=== PATIENT | male | born 1945 | race Caucasian/White ===

== ENCOUNTER → 2019-12-01 08:07 | Outpatient (BNVA) | payer MEDICARE, OTHER, SELFPAY | PROVIDERS: Family Provider Internal Medicine; PCP Internal Medicine; Visit Provider Urology | DX: R97.20 Elevated prostate specific antigen [PSA] (principal); R39.9 Unspecified symptoms and signs involving the genitourinary system; N52.1 Erectile dysfunction due to diseases classified elsewhere; R35.1 Nocturia | CPT/HCPCS: 81001; 84153 ==

== ENCOUNTER → 2020-01-01 13:10 | Outpatient (BNVA) | payer MEDICARE, OTHER, SELFPAY | PROVIDERS: Family Provider Internal Medicine; PCP Internal Medicine; Visit Provider Internal Medicine Rheumatology | DX: Z79.899 Other long term (current) drug therapy (principal); M19.90 Unspecified osteoarthritis, unspecified site; Z11.59 Encounter for screening for other viral diseases; Z72.89 Other problems related to lifestyle | CPT/HCPCS: 36415; 80076; 82565; 85025; 85651; 86140; 86480; 86704; 87340 ==

== ENCOUNTER 2021-01-23 15:28 | Outpatient (CLI) | payer OTHER, MEDICARE, SELFPAY ==
--- NOTE | 2021-01-23 15:45 | USCV_ITS ---
Maurizio Malave Age: 75 Gender: M : 1945 Exam Date: 01/23/2021 15:49 Ordering Phys: Avery Jung M.D ([email or web address]) Technologist: Ashley Bautista [place] [facility] [place]: HEART MURMUR BP: 115 / 60 HR: 58 Rhythm: Sinus Technical Quality: Adequate MEASUREMENTS (Male / Female) Normal Values 2D ECHO LV Diastolic Diameter PLAX 4.1 cm 4.2 - 5.9 / 3.9 - 5.3 cm LV Systolic Diameter PLAX 2.4 cm IVS Diastolic Thickness 1.9 cm 0.6 - 1.0 / 0.6 - 0.9 cm IVS Systolic Thickness 2.1 cm LVPW Diastolic Thickness 1.7 cm 0.6 - 1.0 / 0.6 - 0.9 cm LVPW Systolic Thickness 2.4 cm RV Chamber Size 4.1 cm LVOT Diameter 2.0 cm LV Ejection Fraction 2D Teich 71.8 % LV Ejection Fraction MOD 2C 67.3 % LV Ejection Fraction 2C AL 65.8 % LA Diameter 3.4 cm LA Width 3.6 cm LA Height 5.6 cm RA Width 4.3 cm RA Height 5.3 cm Aorta at Sinotubular Diameter 2.5 cm M-MODE LV Diastolic Diameter MM 5.4 cm 4.2 - 5.9 / 3.9 - 5.3 cm LV Systolic Diameter MM 3.3 cm LV Ejection Fraction MM Teich 68.6 % IVS Diastolic Thickness MM 1.7 cm 0.6 - 1.0 / 0.6 - 0.9 cm IVS Systolic Thickness MM 2.6 cm LVPW Diastolic Thickness MM 1.3 cm 0.6 - 1.0 / 0.6 - 0.9 cm LVPW Systolic Thickness MM 2.1 cm Aortic Annulus Diameter 3.2 cm LA Ao Ratio MM 1.2 MV E Point Septal Separation 0.8 cm DOPPLER AV Peak Velocity 256.0 cm/s LVOT Peak Velocity 104.0 cm/s AV Area Cont Eq vti 1.6 cm squared AV Area Cont Eq pk 1.3 cm squared MV Area PHT 3.7 cm squared Mitral E to A Ratio 0.8 MV E' Velocity 48.5 cm/s Mitral E to MV E' Ratio 10.0 Mitral E to LV E' Lateral Ratio 8.3 Mitral E to LV E' Septal Ratio 12.6 TR Peak Velocity 300.0 cm/s TR Peak Gradient 36.0 mmHg Right Atrial Pressure 3.0 mmHg Pulmonary Artery Systolic Pressu 39.0 mmHg PV Peak Velocity 125.0 cm/s RV Acceleration Time 0.1 s RV Ejection Time 0.3 s RV AcT/ET 0.2 FINDINGS Left Ventricle Normal left ventricular size. LV systolic function is normal with EF of 55-60%. No regional wall motion abnormalities. Grade 1 diastolic dysfunction Right Ventricle The right ventricle is normal in size and function. Right Atrium The right atrium is normal in size. Left Atrium The left atrium is normal in size. Mitral Valve Structurally normal mitral valve without significant stenosis or prolapse. There is trace mitral regurgitation. Aortic Valve Aortic valve is thickened. There is mild aortic stenosis. By continuity equation, patient's aortic valve area is 1.6cm2 and mean gradient across the aortic valve is 12.3mmHg. There is no aortic regurgitation. Tricuspid Valve Structurally normal tricuspid valve without significant stenosis or regurgitation. Insufficient TR jet to calculate RVSP Pulmonic Valve Structurally normal pulmonic valve without significant stenosis. There is no pulmonic regurgitation. Pericardium Normal pericardium without effusion. Aorta Normal ascending aorta dimension. CONCLUSIONS LV systolic function is normal with EF of 55-60% Grade 1 diastolic dysfunction Mild aortic stenosis Trace mitral regurgitation No comparison studies are available Avery Jung MD (Electronically Signed) Final Date: 29 Jan 2021 15:05 S
== END 2021-01-23 15:29 | disposition home or self-care (01) ==
LOC: US 15:30
PROVIDERS: PCP Internal Medicine; Visit Provider Internal Medicine
DX: R01.1 Cardiac murmur, unspecified (principal); I51.81 Takotsubo syndrome; I35.0 Nonrheumatic aortic (valve) stenosis; I34.0 Nonrheumatic mitral (valve) insufficiency
CPT/HCPCS: 93306

== ENCOUNTER → 2021-03-23 09:48 | Outpatient (BNVA) | payer OTHER, MEDICARE, SELFPAY | PROVIDERS: PCP Internal Medicine; Visit Provider Internal Medicine Rheumatology | DX: M19.90 Unspecified osteoarthritis, unspecified site (principal); Z87.39 Personal history of other diseases of the musculoskeletal system and connective tissue; Z79.899 Other long term (current) drug therapy; Z79.52 Long term (current) use of systemic steroids | CPT/HCPCS: 99214; 99215 ==

== ENCOUNTER → 2021-05-17 15:10 | Outpatient (BNVA) | payer OTHER, SELFPAY | PROVIDERS: PCP Internal Medicine; Visit Provider Internal Medicine Rheumatology | DX: M19.90 Unspecified osteoarthritis, unspecified site (principal); Z87.39 Personal history of other diseases of the musculoskeletal system and connective tissue; Z79.899 Other long term (current) drug therapy; R53.1 Weakness | CPT/HCPCS: 99214 ==

== ENCOUNTER → 2021-10-11 15:06 | Outpatient (BNVA) | payer OTHER, SELFPAY | PROVIDERS: PCP Internal Medicine; Visit Provider Internal Medicine Rheumatology | DX: M25.50 Pain in unspecified joint (principal); Z87.39 Personal history of other diseases of the musculoskeletal system and connective tissue; Z79.899 Other long term (current) drug therapy; R53.1 Weakness | CPT/HCPCS: 99214 ==

== ENCOUNTER 2021-11-20 13:20 | Emergency (ER) | payer OTHER, MEDICARE, SELFPAY ==
[2021-11-20 13:21] VITALS: BP 189/92; PULSE 62; RESP 18; TEMP 36.6; O2SAT 96; BMI 29.0
[2021-11-20 13:28] VITALS: BP 209/90; RESP 18; O2SAT 96
--- NOTE | 2021-11-20 13:29 | CT_ITS ---
WS: [id number] CT CERVICAL TRAUMA TECHNIQUE: Noncontrast CT of the cervical spine with coronal and sagittal reformatted images. CLINICAL INFORMATION: trauma COMPARISON: None. DLP: 689.[address] scans at [facility] use at least one of these dose optimization techniques: automated e xposure control; mA and/or kV adjustment per patient size (includes targeted exams where dose is matc hed to clinical indication); or iterative reconstruction. FINDINGS: Straightening of the normal cervical lordosis. Moderate spondylitic changes. Disc space narrowing wor se at C5-C6 with anterior hypertrophic changes. Normal craniocervical junction. Normal C1-C2 articula tion. Dens is normal in appearance. Normal occipital condyles. No high-grade spinal canal narrowing. Normal C1 ring. No evidence of acute fracture or dislocation. Normal prevertebral soft tissues. Mastoids air cells are well aerated. CT/CT cervical spin wo con* [id number] IMPRESSION: No evidence of acute fracture or dislocation.
--- NOTE | 2021-11-20 13:29 | CT_ITS ---
WS: [id number] CT HEAD TECHNIQUE: Noncontrast CT of the head obtained from the skullbase to the vertex. CLINICAL INFORMATION: trauma COMPARISON: None. DLP: 1053.[address] scans at [facility] use at least one of these dose optimization techniques: automated e xposure control; mA and/or kV adjustment per patient size (includes targeted exams where dose is matc hed to clinical indication); or iterative reconstruction. FINDINGS: No evidence of intracranial hemorrhage or mass effect. Ventricular system and basal cisterns are wise nt. Mild small vessel changes with moderate parenchymal volume loss. Chronic encephalomalacia in the inferior frontal lobes bilaterally. No extra-axial fluid collections. No evidence of mass or mass eff ect. Mastoid air cells are well aerated. Fluid and blood products in the paranasal sinuses worse in the RI GHT maxillary sinus. Partially visualized RIGHT facial fractures. RIGHT inferior orbit depressed frac ture will be described on the face CT. Soft tissue edema overlying the RIGHT forehead and orbit. CT/CT head wo con* [id number] IMPRESSION: 1. No evidence of intracranial hemorrhage or mass effect. 2. Mild small vessel changes with moderate parenchymal volume loss. 3. 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 4. Diffuse soft tissue edema overlying the RIGHT forehead and RIGHT facial sof t tissues. Partially visualized RIGHT orbital floor fracture will be described on the face CT.
--- NOTE | 2021-11-20 13:29 | CT_ITS ---
WS: [id number] CT FACIAL BONES TECHNIQUE: Noncontrast facial bones with coronal and sagittal reformatted images. CLINICAL INFORMATION: trauma COMPARISON: None. DLP: 865.[address] scans at [place] use at least one of these dose optimization techniques: automated e xposure control; mA and/or kV adjustment per patient size (includes targeted exams where dose is matc hed to clinical indication); or iterative reconstruction. FINDINGS: Diffuse soft tissue edema overlying the RIGHT inferior frontal calvarium and RIGHT orbit. Comminuted depressed RIGHT inferior orbit fracture with herniation of intraorbital fat. No entrapment of the inf erior rectus. Orbital depression measures approximately 9 mm. Associated blood products in the RIGHT maxillary sinus. Nondepressed tiny probable fracture of the RIGHT lamina papyracea. Fluid and blood products in the RI GHT ethmoid air cells. Lateral orbit appears intact. Small RIGHT nasal bone fracture. Comminuted depressed fracture involving the RIGHT anterior maxillary sinus. Normal pterygoid plates. Normal RIGHT zygoma. Mastoid air cells are well aerated. No evidence of mandibular fracture or disloc ation. CT/CT facial bones wo con* [id number] IMPRESSION: 1. Comminuted RIGHT orbital floor fracture with depression measuring 9 mm. Her niation of intraorbital fat into the maxillary sinus. No entrapment of the infe rior rectus. 2. Probable tiny fracture involving the RIGHT lamina papyracea with fluid in t he RIGHT ethmoid air cells. Comminuted fracture of the RIGHT anterior maxillary sinus with 3 to 4 mm of depression. 3. RIGHT nondisplaced nasal bone fracture. 4. Mastoid air cells are well aerated. 5. Fluid and blood products within the paranasal sinuses worse in the RIGHT ma xillary sinus. Notified Pelon Flowers DO at 11/20/2021 2:42 PM.
[2021-11-20 13:39] VITALS: BP 209/90; PULSE 57; RESP 18; O2SAT 97
[2021-11-20 13:43] VITALS: RESP 18
[2021-11-20] MEDS: ondansetron 2 mg/ML SDV 2 mL 4 MG IVP (13:43)
[2021-11-20] MEDS: morphine 4 mg/mL SDV 1 mL IVP (13:43)
[2021-11-20] MEDS: tetanus-dipt-pertussis 0.5 mL SDV IM (13:44)
--- NOTE | 2021-11-20 14:31 | ED_ITS ---
Documented by User: Pelon Flowers DO 11/21/21 08:11 HPI - Trauma General: Chief Complaint: Trauma Stated Complaint: RT EYE SWOLLEN Time Seen by Provider: 11/20/21 13:27 Source: patient Mode of arrival: EMS Limitations: no limitations History of Present Illness: 76-year-old male brought in by EMS. 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 His right eye is significantly swollen. He is unable to open it or see out of it. He was given some pain medications in route when I came to see the patient this was undertaken with CT recheck to him after his CT his pain is pretty much been relieved he is still having some nausea. No vomiting. MD complaint: injury Onset (ago): minute(s) Loss of Consciousness: unsure Location: head and face Context: other (Tree trimming accident) Associated symptoms: Reports dizziness and headache(s); Denies abdominal pain, anorexia, back pain, chest pain, chills, confusion, cough, dental pain, diaphoresis, difficulty breathing, epistaxis, fever(s), nausea, seizures or short of breath Treatments prior to arrival: dressings Review of Systems Const: Denies: fever(s), chills or diaphoresis ENMT: Denies: dental pain or epistaxis Card: Denies: chest pain Resp: Denies: dyspnea, productive cough or non-productive cough GI: Denies: abdominal pain or nausea : Denies: flank pain, dysuria, urinary frequency or urinary urgency Musc: Denies: back pain Skin/Breast: Denies: rash or pruritus Neuro: Reports: headache(s) and dizziness; Denies: confusion PFSH ED PFSH: Medical History Chronic steroid use COVID-19 vaccine administered Diabetes Elevated PSA Erectile dysfunction GERD (gastroesophageal reflux disease) High risk medication use Hx of polymyalgia rheumatica Hyperlipidemia Inflammatory arthritis Lipoma of chest wall Nocturia Surgical History H/O prostate biopsy Family History Mother Stroke Father Heart disease Other CAD (coronary artery disease) Hypertension Denies family history of Rheumatoid arthritis Lupus Chronic kidney disease (CKD) Lung disease Cancer Social History Smoking and tobacco status: never smoked Alcohol intake: never Marital status: Current occupational status: employed and retired 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 No active bleeding. Eye: COMMON NORMALS: Equal, round and reactive pupils present, EOMs intact bilaterally, conjunctivae normal and no scleral icterus CONJUNCTIVA: Yes conjunctivae normal PUPIL: Yes Equal, round and reactive pupils present OTHER: Somewhat limited exam of the right eye due to swelling but was able to manually open his eyelids visualize the sclera and pupil. Patient has good extraocular movements and pupil is reactive sclerae intact there is no hyphema Neck/C-Spine: COMMON NORMALS: full ROM, no lymphadenopathy, supple and no JVD Resp: COMMON NORMALS: normal respiratory effort, No retractions, No use of accessory muscles and clear to auscultation bilaterally AUSCULTATION: clear to auscultation bilaterally Cardio: COMMON NORMALS: no JVD, regular rate, regular rhythm and No murmurs present (Cardio) RATE: regular rate RHYTHM: regular rhythm GI: COMMON NORMALS: Soft to palpation and No hepatosplenomegaly present AUSCULTATION: Yes normoactive bowel sounds PALPATION: Yes Soft to palpation, No Tenderness to palpation present (GI), No Guarding due to palpation present (GI) and Yes No hepatosplenomegaly present Extremity: COMMON NORMALS: normal to inspection, capillary refill normal, no clubbing, cyanosis or edema, no calf tenderness and no pedal edema Neuro: SENSORIUM/ORIENTATION: Yes oriented to person, Yes oriented to place and Yes oriented to time Skin: COMMON NORMALS: no rashes or lesions noted GENERAL SKIN EXAM: no rashes or lesions noted Course Vital Signs: Vital signs: Vital Signs Temperature 97.9 F 11/20/21 13:21 Pulse Rate 57 L 03/21/22 13:39 Respiratory Rate 18 11/20/21 13:43 Blood Pressure 209/90 11/20/21 13:39 Pulse Oximetry 97 11/20/21 13:39 MDM - Trauma Medical Decision Making Laceration repaired by PENELOPE Dubois at my request. Wound edges well approximated. Discussed with Dr. Sesay on for ENT he does not recommend anything further beyond ophthalmology consultation. I called Dr. Foster who is on-call for ophthalmology he does not feel at this point patient to be seen emergently however he would like to see him in about 7 to 10 days will make an outpatient follow-up appointment. Sutures to be removed by primary care in 7 days. Asked patient to avoid blowing his nose or heavy exertion. Additionally Dr. Foster's request placed patient placed on Augmentin 875 twice daily for 7 days return if he has further problems. I was asked by Dr. Flowers to repair patient's right superior orbital laceration. This was completed as documented. I personally copiously irrigated laceration in addition to irrigation performed by RN. Other than laceration repair I did not actively participate in any portion of patient's care. Medical Records I reviewed the patient's medical records. Lab Data I reviewed the patient's lab results. Radiology Impressions Cervical Spine CT 11/20/21 13:29 IMPRESSION: No evidence of acute fracture or dislocation. Face CT 11/20/21 13:29 IMPRESSION: 1. Comminuted RIGHT orbital floor fracture with depression measuring 9 mm. Herniation of intraorbital fat into the maxillary sinus. No entrapment of the inferior rectus. 2. Probable tiny fracture involving the RIGHT lamina papyracea with fluid in the RIGHT ethmoid air cells. Comminuted fracture of the RIGHT anterior maxillary sinus with 3 to 4 mm of depression. 3. RIGHT nondisplaced nasal bone fracture. 4. Mastoid air cells are well aerated. 5. Fluid and blood products within the paranasal sinuses worse in the RIGHT maxillary sinus. Notified Pelon Flowers DO at 11/20/2021 2:[address] 11/20/21 13:29 IMPRESSION: 1. No evidence of intracranial hemorrhage or mass effect. 2. Mild small vessel changes with moderate parenchymal volume loss. 3. 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 4. Diffuse soft tissue edema overlying the RIGHT forehead and RIGHT facial soft tissues. Partially visualized RIGHT orbital floor fracture will be described on the face CT. Discharge Plan Discharge Patient Disposition: Home Clinical Impression: Closed fracture of right orbital floor, Closed fracture nasal bone Condition: Stable Prescriptions: New Augmentin 875-125 mg tablet 1 tab PO BID Qty: 14 0RF amlodipine-benazepril 10-20 mg capsule 1 cap PO DAILY Qty: 30 0RF hydrocodone-acetaminophen 5-325 mg tablet 1 tab PO Q6H PRN (Reason: pain) Qty: 20 0RF No Action aspirin 325 mg tablet 325 mg PO QAM 0RF amlodipine-benazepril 10-20 mg capsule 1 cap PO DAILY 0RF finasteride 5 mg tablet 5 mg PO DAILY 0RF glipizide 5 mg tablet 5 mg PO BID 0RF metformin 1,000 mg tablet 1,000 mg PO BID 0RF metoprolol tartrate 100 mg tablet 50 mg PO BID 0RF folic acid 1 mg tablet 1 mg PO DAILY Qty: 90 3RF prednisone 10 mg tablet See Rx Instructions PO .COMPLEX PRN (Reason: joint pain) Qty: 30 1RF Rx Instructions: take 1 tab daily for 5-7 days prn joint pain flare Mobic 15 mg Tablet 15 mg PO DAILY 0RF hydrochlorothiazide 25 mg Tablet 25 mg PO DAILY PRN (Reason: Edema) 0RF methotrexate sodium 2.5 mg tablet 15 mg PO Q7D 0RF Rx Instructions: (on Saturday) pantoprazole 40 mg tablet,delayed release (DR/EC) 40 mg PO DAILY PRN (Reason: Heartburn) 0RF Rx Instructions: 30 minutes before meal Discharge Orders: Discharge ED (Routine); Ordered 11/20/21 Ordered By: Pelon Flowers Referrals: Kristian Foster MD [Physician] - (10 days follow-up in his office) Sloan Greene DO [Primary Care Provider] - Discharge Diet: Usual diet Discharge Activity: Limit activity as instructed Patient Instructions: Opioid Safety Activity Restrictions/Additional Instructions: This management make an arrangement for you to follow-up with ophthalmology in approximately 10 days. Follow-up with Dr. Greene in 7 days to have the sutures removed Coding Level of Care Code ED Cage Shift Manager for Chg Fwd Documented by User: PENELOPE Dubois 11/20/21 16:06 HPI - Trauma General: Chief Complaint: Trauma Stated Complaint: RT EYE SWOLLEN Time Seen by Provider: 11/20/21 13:27 PFSH ED PFSH: Medical History Chronic steroid use COVID-19 vaccine administered Diabetes Elevated PSA Erectile dysfunction GERD (gastroesophageal reflux disease) High risk medication use Hx of polymyalgia rheumatica Hyperlipidemia Inflammatory arthritis Lipoma of chest wall Nocturia Surgical History H/O prostate biopsy Family History Mother Stroke Father Heart disease Other CAD (coronary artery disease) Hypertension Denies family history of Rheumatoid arthritis Lupus Chronic kidney disease (CKD) Lung disease Cancer Social History Smoking and tobacco status: never smoked Alcohol intake: never Marital status: Current occupational status: employed and retired 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 History of recent travel: No Procedures Laceration Laceration 1: Site: face (R superior orbit) Side (If applicable): right Size (cm): 2.5 Description: irregular Local Anesthetic: lidocaine 1% and with epi Amount of anesthesia used (mL): 3.0 Pre-repair: wound explored and irrigated extensively Skin layer closed with: nylon Size (cm): 4-0 Number of sutures: 8 Technique: simple, interrupted Course Vital Signs: Vital signs: Vital Signs Temperature 97.9 F 11/20/21 13:21 Pulse Rate 57 L 11/20/21 13:39 Respiratory Rate 18 11/20/21 13:43 Blood Pressure 209/90 11/20/21 13:39 Pulse Oximetry 97 11/20/21 13:39 MDM - Trauma Medical Decision Making I was asked by Dr. Flowers to repair patient's right superior orbital laceration. This was completed as documented. I personally copiously irrigated laceration in addition to irrigation performed by RN. Other than laceration repair I did not actively participate in any portion of patient's care. Lab Data Radiology Impressions Cervical Spine CT 11/20/21 13:29 IMPRESSION: No evidence of acute fracture or dislocation. Face CT 11/20/21 13:29 IMPRESSION: 1. Comminuted RIGHT orbital floor fracture with depression measuring 9 mm. Herniation of intraorbital fat into the maxillary sinus. No entrapment of the inferior rectus. 2. Probable tiny fracture involving the RIGHT lamina papyracea with fluid in the RIGHT ethmoid air cells. Comminuted fracture of the RIGHT anterior maxillary sinus with 3 to 4 mm of depression. 3. RIGHT nondisplaced nasal bone fracture. 4. Mastoid air cells are well aerated. 5. Fluid and blood products within the paranasal sinuses worse in the RIGHT maxillary sinus. Notified Pelon Flowers DO at 11/20/2021 2:[address] 11/20/21 13:29 IMPRESSION: 1. No evidence of intracranial hemorrhage or mass effect. 2. Mild small vessel changes with moderate parenchymal volume loss. 3. 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 4. Diffuse soft tissue edema overlying the RIGHT forehead and RIGHT facial soft tissues. Partially visualized RIGHT orbital floor fracture will be described on the face CT. Discharge Plan Discharge Patient Disposition: Home Clinical Impression: Closed fracture of right orbital floor, Closed fracture nasal bone Condition: Stable Prescriptions: New Augmentin 875-125 mg tablet 1 tab PO BID Qty: 14 0RF amlodipine-benazepril 10-20 mg capsule 1 cap PO DAILY Qty: 30 0RF hydrocodone-acetaminophen 5-325 mg tablet 1 tab PO Q6H PRN (Reason: pain) Qty: 20 0RF No Action aspirin 325 mg tablet 325 mg PO QAM 0RF amlodipine-benazepril 10-20 mg capsule 1 cap PO DAILY 0RF finasteride 5 mg tablet 5 mg PO DAILY 0RF glipizide 5 mg tablet 5 mg PO BID 0RF metformin 1,000 mg tablet 1,000 mg PO BID 0RF metoprolol tartrate 100 mg tablet 50 mg PO BID 0RF folic acid 1 mg tablet 1 mg PO DAILY Qty: 90 3RF prednisone 10 mg tablet See Rx Instructions PO .COMPLEX PRN (Reason: joint pain) Qty: 30 1RF Rx Instructions: take 1 tab daily for 5-7 days prn joint pain flare Mobic 15 mg Tablet 15 mg PO DAILY 0RF hydrochlorothiazide 25 mg Tablet 25 mg PO DAILY PRN (Reason: Edema) 0RF methotrexate sodium 2.5 mg tablet 15 mg PO Q7D 0RF Rx Instructions: (on Saturday) pantoprazole 40 mg tablet,delayed release (DR/EC) 40 mg PO DAILY PRN (Reason: Heartburn) 0RF Rx Instructions: 30 minutes before meal Discharge Orders: Discharge ED (Routine); Ordered 11/20/21 Ordered By: Pelon Flowers Referrals: Kristian Foster MD [Physician] - (10 days follow-up in his office) Sloan Greene DO [Primary Care Provider] - Discharge Diet: Usual diet Discharge Activity: Limit activity as instructed Patient Instructions: Opioid Safety Activity Restrictions/Additional Instructions: This management make an arrangement for you to follow-up with ophthalmology in approximately 10 days. Follow-up with Dr. Greene in 7 days to have the sutures removed Coding Level of Care Code ED Cage Shift Manager for Sixto Ewing
[2021-11-20] MEDS: promethazine 25 mg/mL SDV 1 mL IM (14:39)
--- NOTE | 2021-11-20 15:06 | PC.PHAR ---
pt states he takes care of his own medications-pt states he is not taking his flomax 0.4mg qpm this medication is a active med on the pts [facility] med [facility]-pt states hes just not taking -
--- NOTE | 2021-11-21 10:50 | DCPLANNER ---
Addendum entered by Brenda Magallanes 11/28/21 13:41: Patient had a followup appointment scheduled for 11.27.[address] Foster, patient did attend appointment. Original Note: manager telemetry had message to schedule a follow up appointment for patient with ophthalmology. manager telemetry faxed patients information to the office of Dr. Foster. Clinic will call patient with appointment information. Patient has [facility] insurance, rehabilitation caseworker emailed patients information to Trisha with [facility], so that the authorization process can be started.
== END 2021-11-20 15:46 | disposition home or self-care (01) ==
PROVIDERS: Emergency Provider Family Medicine; PCP Internal Medicine
DX: S02.2XXA Fracture of nasal bones, initial encounter for closed fracture (principal); S02.31XA Fracture of orbital floor, right side, initial encounter for closed fracture; Z79.82 Long term (current) use of aspirin; Z79.84 Long term (current) use of oral hypoglycemic drugs; E11.9 Type 2 diabetes mellitus without complications; E78.5 Hyperlipidemia, unspecified; W20.8XXA Other cause of strike by thrown, projected or falling object, initial encounter; Z23 Encounter for immunization
CPT/HCPCS: 70450; 70486; 72125; 90471; 90715; 96372; 96374; 96375; 99284; J2270; J2405; J2550

== ENCOUNTER → 2022-04-19 12:56 | Outpatient (BNVA) | payer OTHER, SELFPAY | PROVIDERS: PCP Internal Medicine; Visit Provider Internal Medicine | DX: I10 Essential (primary) hypertension (principal); R01.1 Cardiac murmur, unspecified; R60.0 Localized edema; E11.9 Type 2 diabetes mellitus without complications; Z79.84 Long term (current) use of oral hypoglycemic drugs; I35.0 Nonrheumatic aortic (valve) stenosis | CPT/HCPCS: 99214 ==

== ENCOUNTER 2022-09-04 13:11 | Outpatient (CLI) | payer OTHER, SELFPAY ==
[2022-09-04 14:20] LABS: Prostate Specific AG Urology 6.69 ng/mL (0-4)
== END 2022-09-04 13:12 | disposition home or self-care (01) ==
LOC: LAB 13:14
PROVIDERS: PCP Internal Medicine; Visit Provider Urology
DX: R97.20 Elevated prostate specific antigen [PSA] (principal)
CPT/HCPCS: 36415; 51798; 81003; 84153; 99213

== ENCOUNTER → 2023-01-29 14:45 | Outpatient (BNVA) | payer OTHER, SELFPAY | PROVIDERS: PCP Internal Medicine; Visit Provider Internal Medicine Rheumatology | DX: M19.90 Unspecified osteoarthritis, unspecified site (principal); Z79.899 Other long term (current) drug therapy; M62.81 Muscle weakness (generalized); Z87.39 Personal history of other diseases of the musculoskeletal system and connective tissue | CPT/HCPCS: 36415; 80076; 82085; 82550; 82565; 85025; 85651; 86140; 99214 ==

== ENCOUNTER 2023-03-18 13:53 | Outpatient (CLI) | payer OTHER, SELFPAY | END 2023-03-18 13:54 | disposition home or self-care (01) | PROVIDERS: PCP Internal Medicine; Visit Provider Urology | DX: R97.20 Elevated prostate specific antigen [PSA] (principal) | CPT/HCPCS: 36415; 84153 ==

== ENCOUNTER → 2023-07-02 09:51 | Outpatient (BNVA) | payer OTHER, SELFPAY | PROVIDERS: PCP Internal Medicine; Visit Provider Podiatrist Foot & Ankle Surgery | DX: B35.1 Tinea unguium (principal); N18.9 Chronic kidney disease, unspecified; R60.0 Localized edema; I73.9 Peripheral vascular disease, unspecified; E11.22 Type 2 diabetes mellitus with diabetic chronic kidney disease; Z79.84 Long term (current) use of oral hypoglycemic drugs | CPT/HCPCS: 11721; 99203 ==

== ENCOUNTER → 2023-09-16 08:30 | Outpatient (BNVA) | payer OTHER, SELFPAY | PROVIDERS: PCP Internal Medicine; Visit Provider Podiatrist Foot & Ankle Surgery | DX: B35.1 Tinea unguium (principal); N18.9 Chronic kidney disease, unspecified; R60.0 Localized edema; I73.9 Peripheral vascular disease, unspecified; L84 Corns and callosities; E11.29 Type 2 diabetes mellitus with other diabetic kidney complication; Z79.84 Long term (current) use of oral hypoglycemic drugs | CPT/HCPCS: 11055; 11721 ==

== ENCOUNTER → 2023-11-25 08:16 | Outpatient (BNVA) | payer OTHER, SELFPAY | PROVIDERS: PCP Internal Medicine; Visit Provider Podiatrist Foot & Ankle Surgery | DX: B35.1 Tinea unguium (principal); N18.9 Chronic kidney disease, unspecified; R60.0 Localized edema; I73.9 Peripheral vascular disease, unspecified; L84 Corns and callosities; E11.29 Type 2 diabetes mellitus with other diabetic kidney complication; Z79.84 Long term (current) use of oral hypoglycemic drugs | CPT/HCPCS: 11055; 11721 ==

== ENCOUNTER → 2024-02-18 08:45 | Outpatient (BNVA) | payer OTHER, SELFPAY | PROVIDERS: PCP Internal Medicine; Visit Provider Podiatrist Foot & Ankle Surgery | DX: B35.1 Tinea unguium (principal); N18.9 Chronic kidney disease, unspecified; R60.0 Localized edema; I73.9 Peripheral vascular disease, unspecified; L84 Corns and callosities; E11.29 Type 2 diabetes mellitus with other diabetic kidney complication; Z79.84 Long term (current) use of oral hypoglycemic drugs | CPT/HCPCS: 11721 ==

== ENCOUNTER → 2024-04-15 15:17 | Outpatient (BNVA) | payer OTHER, SELFPAY | PROVIDERS: PCP Internal Medicine; Visit Provider Internal Medicine | DX: I10 Essential (primary) hypertension (principal); I35.0 Nonrheumatic aortic (valve) stenosis; R01.1 Cardiac murmur, unspecified; R60.0 Localized edema; E11.9 Type 2 diabetes mellitus without complications; Z79.84 Long term (current) use of oral hypoglycemic drugs | CPT/HCPCS: 99214 ==

== ENCOUNTER → 2024-05-05 11:08 | Outpatient (BNVA) | payer OTHER, SELFPAY | PROVIDERS: PCP Internal Medicine; Visit Provider Podiatrist Foot & Ankle Surgery | DX: N18.9 Chronic kidney disease, unspecified; R60.0 Localized edema; I73.9 Peripheral vascular disease, unspecified; L84 Corns and callosities; T25.222A Burn of second degree of left foot, initial encounter; X19.XXXA Contact with other heat and hot substances, initial encounter; E11.29 Type 2 diabetes mellitus with other diabetic kidney complication; Z79.84 Long term (current) use of oral hypoglycemic drugs; B35.1 Tinea unguium | CPT/HCPCS: 99213 ==

== ENCOUNTER → 2024-05-28 13:51 | Outpatient (BNVA) | payer MEDICARE, OTHER, SELFPAY | PROVIDERS: PCP Internal Medicine; Visit Provider Thoracic Surgery (Cardiothoracic Vascular Surgery) | DX: I96 Gangrene, not elsewhere classified (principal); T25.022D Burn of unspecified degree of left foot, subsequent encounter; X08.8XXD Exposure to other specified smoke, fire and flames, subsequent encounter | CPT/HCPCS: 97597; 99213 ==

== ENCOUNTER → 2024-06-04 15:31 | Outpatient (BNVA) | payer OTHER, SELFPAY | PROVIDERS: PCP Internal Medicine; Visit Provider Thoracic Surgery (Cardiothoracic Vascular Surgery) | DX: E11.52 Type 2 diabetes mellitus with diabetic peripheral angiopathy with gangrene (principal); E11.621 Type 2 diabetes mellitus with foot ulcer; L97.521 Non-pressure chronic ulcer of other part of left foot limited to breakdown of skin | CPT/HCPCS: 97597 ==

== ENCOUNTER → 2024-06-11 13:56 | Outpatient (BNVA) | payer OTHER, SELFPAY | PROVIDERS: PCP Internal Medicine; Visit Provider Thoracic Surgery (Cardiothoracic Vascular Surgery) | DX: E11.52 Type 2 diabetes mellitus with diabetic peripheral angiopathy with gangrene (principal); E11.621 Type 2 diabetes mellitus with foot ulcer; L97.521 Non-pressure chronic ulcer of other part of left foot limited to breakdown of skin | CPT/HCPCS: 97597; A6248 ==

== ENCOUNTER 2024-06-16 13:20 | Outpatient (CLI) | payer OTHER, SELFPAY ==
--- NOTE | 2024-06-16 13:30 | USCV_ITS ---
Ananda Maurizio Age: 79 Gender: M : 1945 Exam Date: 06/16/2024 13:47 Ordering Phys: Avery Jung M.D ([email or web address]) Technologist: Exam Location: [facility] [place] Indication: as BP: 120 / 73 HR: 57 Rhythm: Sinus Technical Quality: Adequate MEASUREMENTS (Male / Female) Normal Values 2D ECHO LV Diastolic Diameter PLAX 4.6 cm 4.2 - 5.9 / 3.9 - 5.3 cm IVS Diastolic Thickness 1.3 cm 0.6 - 1.0 / 0.6 - 0.9 cm IVS Systolic Thickness 1.8 cm LVPW Diastolic Thickness 1.5 cm 0.6 - 1.0 / 0.6 - 0.9 cm LVPW Systolic Thickness 1.7 cm LVOT Diameter 2.1 cm LV Ejection Fraction 2D Teich 57.3 % LV Ejection Fraction MOD 4C 73.9 % LV Ejection Fraction MOD 2C 68.9 % LV Ejection Fraction 2C AL 71.5 % LA Diameter 3.9 cm RA Systolic Volume 4C AL 67.9 ml RA Systolic Volume 4C MOD 63.0 ml Aorta at Sinotubular Diameter 2.5 cm M-MODE LA Ao Ratio MM 1.3 AV Cusp Separation MM 1.6 cm DOPPLER AV Peak Velocity 297.3 cm/s LVOT Peak Velocity 100.0 cm/s AV Area Cont Eq vti 1.4 cm squared AV Area Cont Eq pk 1.1 cm squared MV Peak Velocity 106.0 cm/s MV Area PHT 3.0 cm squared Mitral E to A Ratio 1.0 TV Peak Velocity 229.0 cm/s TR Peak Velocity 314.0 cm/s TR Peak Gradient 39.4 mmHg TV Peak E Velocity 108.0 cm/s Right Atrial Pressure 3.0 mmHg Pulmonary Artery Systolic Pressu 42.4 mmHg PV Peak Velocity 101.0 cm/s FINDINGS Left Ventricle Normal left ventricular size, systolic function and wall thickness, with no regional wall motion abnormalities. Left ventricular ejection fraction is estimated at 55 %. Grade I/IV diastolic dysfunction (abnormal relaxation filling pattern), normal to mildly elevated filling pressures. Right Ventricle The right ventricle is normal in size and function. Right Atrium The right atrium is normal in size. Left Atrium The left atrium is normal in size. Mitral Valve Mildly thickened mitral valve. Mitral annular calcification. Trace mitral valve regurgitation. Aortic Valve Severe aortic valve calcification. Moderate aortic valve stenosis, mean gradient 16.6 mmHg, NOLVIA 1.4 cm squared. Trace aortic valve regurgitation. Tricuspid Valve Structurally normal tricuspid valve without significant stenosis or regurgitation. Pulmonary artery systolic pressure is normal. Pulmonic Valve Structurally normal pulmonic valve without significant stenosis. There is no pulmonic regurgitation. Pericardium Normal pericardium without effusion. Aorta Normal ascending aorta dimension. IVC The inferior vena cava appears normal. CONCLUSIONS Normal left ventricular size, systolic function and wall thickness, with no regional wall motion abnormalities. Left ventricular ejection fraction is estimated at 55 %. Grade I/IV diastolic dysfunction (abnormal relaxation filling pattern), normal to mildly elevated filling pressures. Mildly thickened mitral valve. Mitral annular calcification. Trace mitral valve regurgitation. Severe aortic valve calcification. Moderate aortic valve stenosis, mean gradient 16.6 mmHg, NOLVIA 1.4 cm squared. Trace aortic valve regurgitation. There is no pericardial effusion. Right atrial pressure is around 5 mm of mercury. Tylor Velez MD (Electronically Signed) Final Date: 18 June 2024 21:57 S
== END 2024-06-16 13:21 | disposition home or self-care (01) ==
LOC: RAD 13:21
PROVIDERS: PCP Internal Medicine; Visit Provider Internal Medicine
DX: I35.0 Nonrheumatic aortic (valve) stenosis (principal); I50.30 Unspecified diastolic (congestive) heart failure; I70.0 Atherosclerosis of aorta
CPT/HCPCS: 93306

== ENCOUNTER 2024-06-18 15:51 | Outpatient (CLI) | payer OTHER, SELFPAY ==
--- NOTE | 2024-06-18 15:57 | XR_ITS ---
WS: [id number] Left foot, 3 views, 06/18/2024 Clinical Data: E11.621 - Type 2 diabetes mellitus with foot ulcer Comparison: None. Findings: No fractures or dislocations are seen. There is trabecular bone loss of the distal phalanx of the lef t fifth toe and bone loss of the distal aspect of the left fifth toe proximal phalanx. There is soft tissue swelling about the left fifth toe. There is vascular calcification. There is an intertrochanteric isabella in the distal left tibia. XR/XR foot LT min 3V* [id number] Impression: 1. Trabecular bone loss of the distal phalanx of the left fifth toe and the dis cale aspect of the left fifth toe proximal phalanx which could indicate osteomye litis. 2. Vascular calcification.
== END 2024-06-18 15:52 | disposition home or self-care (01) ==
LOC: RAD 15:51
PROVIDERS: PCP Internal Medicine; Visit Provider Thoracic Surgery (Cardiothoracic Vascular Surgery)
DX: M85.872 Other specified disorders of bone density and structure, left ankle and foot (principal); E11.52 Type 2 diabetes mellitus with diabetic peripheral angiopathy with gangrene; E11.621 Type 2 diabetes mellitus with foot ulcer; L97.521 Non-pressure chronic ulcer of other part of left foot limited to breakdown of skin
CPT/HCPCS: 73630; 97597

== ENCOUNTER 2024-06-25 15:21 | Outpatient (CLI) | payer OTHER, SELFPAY ==
[2024-06-25 15:42] LABS: Basophils # 0.1 10^3/uL (0.0-0.1); Basophils % 0.8 %; Eosinophils # 0.4 10^3/uL (0.0-0.8); Eosinophils % 3.7 %; Hematocrit 43.1 % (37-53); Lymphocytes # 2.4 10^3/uL (0.8-4.8); Lymphocytes % 24.4 %; Mean Corpuscular HGB Conc 31.8 g/dL (30-55); Mean Corpuscular Volume 94.5 fl (82-101); Monocytes # 0.8 10^3/uL (0.2-0.9); Monocytes % 7.8 %; Neutrophils # 6.17 10^3/uL (1.8-7.7); Neutrophils % 62.7 %; Nucleated Red Blood Cells % 0 %; Platelet Count 300 10^3/cmm (157-399); Red Blood Count 4.56 10^6/uL (3.85-5.65); Red Cell Distribution Width 13.2 % (12.1-15.1); White Blood Count 9.84 10^3/uL (3.29-11.43)
[2024-06-25 16:03] LABS: Erythrocyte Sedimentation Rate 32 mm/hr (0-10)
[2024-06-25 16:06] LABS: C Reactive Protein 7.9 mg/L (0.0-4.9); Prealbumin 31.2 mg/dL (20-40)
[2024-06-25 16:12] LABS: Estmated Average Glucose 177; Hemoglobin A1C 7.8 % (4.0-6.0)
== END 2024-06-25 15:22 | disposition home or self-care (01) ==
LOC: RAD 15:22
PROVIDERS: PCP Internal Medicine; Visit Provider Thoracic Surgery (Cardiothoracic Vascular Surgery)
DX: E11.52 Type 2 diabetes mellitus with diabetic peripheral angiopathy with gangrene (principal); E11.621 Type 2 diabetes mellitus with foot ulcer; L97.521 Non-pressure chronic ulcer of other part of left foot limited to breakdown of skin
CPT/HCPCS: 36415; 83036; 84134; 85025; 85651; 86140; 97597

== ENCOUNTER → 2024-07-02 15:00 | Outpatient (BNVA) | payer OTHER, SELFPAY | PROVIDERS: PCP Internal Medicine; Visit Provider Thoracic Surgery (Cardiothoracic Vascular Surgery) | DX: T25.022D Burn of unspecified degree of left foot, subsequent encounter (principal); X08.8XXD Exposure to other specified smoke, fire and flames, subsequent encounter; E11.52 Type 2 diabetes mellitus with diabetic peripheral angiopathy with gangrene; E11.621 Type 2 diabetes mellitus with foot ulcer; L97.521 Non-pressure chronic ulcer of other part of left foot limited to breakdown of skin | CPT/HCPCS: 97597; A6248 ==

== ENCOUNTER 2024-07-06 13:41 | Outpatient (CLI) | payer OTHER, SELFPAY ==
[2024-07-06] MEDS: gadobenate dimeglumine 20 mL vial IV (14:17)
--- NOTE | 2024-07-06 14:30 | MR_ITS ---
WS: [id number] MRI LEFT FOOT WITH AND WITHOUT CONTRAST. COMPARISON: Radiograph 06/18/2024 Multiplanar, multisequence imaging is performed with and without contrast. MultiHance 20 mL. There is a marker along the plantar surface of the foot at the level of the distal fourth and fifth m etatarsals. Area of soft tissue thickening is low signal on most sequences suggesting fibrosis between the distal fourth and fifth metatarsals. There is a small amount of edema with mild enhancement surrounding the fifth metatarsal head and the soft tissues of the distal fifth metatarsal. No definite osteomyelitis but there is fluid surrounding the metatarsal head. No additional acute abnormality. No marrow edema or abscess. MR/MR foot LT wo/w con [id number] IMPRESSION: 1. Fluid and enhancement surrounding the fifth metatarsal head consistent with cellulitis. Fluid is closely associated with the fifth metatarsophalangeal lana nt. No definite osteomyelitis or bone enhancement is identified. 2. No abscess.
--- NOTE | 2024-07-06 16:30 | USCV_ITS ---
Maurizio Malave Age: 79 Gender: M : 1945 Exam Date: 07/06/2024 15:00 Ordering Phys: Manfred Sierra MD (Andy) [email or web address] [place] Technologist: ERICA Exam Location: [facility] [place] Indication: Lt heel burning Risk Factors: Previous Vascular Surgery: RIGHT LEFT BP: 129.0 / 64.00 BP: 134.0/ 66.00 0 0 Waveform Velocity (cm/s) Velocity (cm/s) Waveform Iliac Prox 83.3 Triphasic Iliac Mid 82.2 Triphasic Iliac Distal 86.7 Triphasic [employer] 89.0 Triphasic SFA Prox 96.0 Triphasic SFA Mid 104.0 Triphasic SFA Dist 85.0 Triphasic POP 74.0 Triphasic [employer] N/A DPA 190.0 Triphasic AFUA 1.4 FINDINGS Resting AFUA 1.4 on the left side. Mild diffuse plaque in the iliac and femoral arteries on the left side. No flow was detected in the posttibial artery on the left side. Elevated velocity in the dorsalis pedis artery on the right side with a triphasic waveform CONCLUSIONS 1. Super normal resting AFUA on the left side suggesting no significant arterial obstruction in the major arteries 2. Possible occlusion of the posterior artery on the left side 3. Elevated velocity in the dorsalis pedis artery on the left side, possibly be related to tortuosity. Dr Chantelle Ramirez MD FAC (Electronically Signed) Final Date: 07 July 2024 21:23 S
== END 2024-07-06 13:42 | disposition home or self-care (01) ==
LOC: RAD 13:41
PROVIDERS: PCP Internal Medicine; Visit Provider Thoracic Surgery (Cardiothoracic Vascular Surgery)
DX: E11.621 Type 2 diabetes mellitus with foot ulcer (principal); I73.9 Peripheral vascular disease, unspecified; L03.116 Cellulitis of left lower limb
CPT/HCPCS: 73720; 93926

== ENCOUNTER → 2024-07-09 15:00 | Outpatient (BNVA) | payer OTHER, SELFPAY | PROVIDERS: PCP Internal Medicine; Visit Provider Thoracic Surgery (Cardiothoracic Vascular Surgery) | DX: E11.52 Type 2 diabetes mellitus with diabetic peripheral angiopathy with gangrene (principal); E11.621 Type 2 diabetes mellitus with foot ulcer; L97.525 Non-pressure chronic ulcer of other part of left foot with muscle involvement without evidence of necrosis; Z09 Encounter for follow-up examination after completed treatment for conditions other than malignant neoplasm | CPT/HCPCS: 97597; A6248 ==

== ENCOUNTER → 2024-07-15 13:17 | Outpatient (BNVA) | payer OTHER, SELFPAY | PROVIDERS: PCP Internal Medicine; Visit Provider Thoracic Surgery (Cardiothoracic Vascular Surgery) | DX: E11.52 Type 2 diabetes mellitus with diabetic peripheral angiopathy with gangrene (principal); E11.621 Type 2 diabetes mellitus with foot ulcer; L97.525 Non-pressure chronic ulcer of other part of left foot with muscle involvement without evidence of necrosis | CPT/HCPCS: 97597 ==

== ENCOUNTER → 2024-08-05 14:45 | Outpatient (BNVA) | payer OTHER, SELFPAY | PROVIDERS: PCP Internal Medicine; Visit Provider Thoracic Surgery (Cardiothoracic Vascular Surgery) | DX: E11.52 Type 2 diabetes mellitus with diabetic peripheral angiopathy with gangrene (principal); E11.621 Type 2 diabetes mellitus with foot ulcer; L97.521 Non-pressure chronic ulcer of other part of left foot limited to breakdown of skin | CPT/HCPCS: 11042; A6248 ==

== ENCOUNTER → 2024-08-12 13:59 | Outpatient (BNVA) | payer OTHER, SELFPAY | PROVIDERS: PCP Internal Medicine; Visit Provider Thoracic Surgery (Cardiothoracic Vascular Surgery) | DX: I96 Gangrene, not elsewhere classified (principal); T25.022D Burn of unspecified degree of left foot, subsequent encounter; X08.8XXD Exposure to other specified smoke, fire and flames, subsequent encounter | CPT/HCPCS: 11043; A6197 ==

== ENCOUNTER → 2024-08-19 13:52 | Outpatient (BNVA) | payer OTHER, SELFPAY | PROVIDERS: PCP Internal Medicine; Visit Provider Thoracic Surgery (Cardiothoracic Vascular Surgery) | DX: I96 Gangrene, not elsewhere classified (principal); T25.022D Burn of unspecified degree of left foot, subsequent encounter; X08.8XXD Exposure to other specified smoke, fire and flames, subsequent encounter | CPT/HCPCS: 97597 ==

== ENCOUNTER → 2024-08-27 14:05 | Outpatient (BNVA) | payer OTHER, SELFPAY | PROVIDERS: PCP Internal Medicine; Visit Provider Thoracic Surgery (Cardiothoracic Vascular Surgery) | DX: E11.52 Type 2 diabetes mellitus with diabetic peripheral angiopathy with gangrene (principal); E11.621 Type 2 diabetes mellitus with foot ulcer; L97.521 Non-pressure chronic ulcer of other part of left foot limited to breakdown of skin | CPT/HCPCS: 97597; A6210; A6248 ==

== ENCOUNTER → 2024-08-31 14:59 | Outpatient (BNVA) | payer OTHER, SELFPAY | PROVIDERS: PCP Internal Medicine; Visit Provider Thoracic Surgery (Cardiothoracic Vascular Surgery) | DX: E11.52 Type 2 diabetes mellitus with diabetic peripheral angiopathy with gangrene (principal); E11.621 Type 2 diabetes mellitus with foot ulcer; L97.521 Non-pressure chronic ulcer of other part of left foot limited to breakdown of skin | CPT/HCPCS: 11042 ==

== ENCOUNTER → 2024-09-07 14:15 | Outpatient (BNVA) | payer OTHER, SELFPAY | PROVIDERS: PCP Internal Medicine; Visit Provider Thoracic Surgery (Cardiothoracic Vascular Surgery) | DX: E11.52 Type 2 diabetes mellitus with diabetic peripheral angiopathy with gangrene (principal); E11.621 Type 2 diabetes mellitus with foot ulcer; L97.521 Non-pressure chronic ulcer of other part of left foot limited to breakdown of skin | CPT/HCPCS: 97597 ==

== ENCOUNTER → 2024-09-14 13:45 | Outpatient (BNVA) | payer OTHER, SELFPAY | PROVIDERS: PCP Internal Medicine; Visit Provider Thoracic Surgery (Cardiothoracic Vascular Surgery) | DX: E11.52 Type 2 diabetes mellitus with diabetic peripheral angiopathy with gangrene (principal); E11.621 Type 2 diabetes mellitus with foot ulcer; L97.522 Non-pressure chronic ulcer of other part of left foot with fat layer exposed | CPT/HCPCS: 97597 ==

== ENCOUNTER → 2024-09-30 14:45 | Outpatient (BNVA) | payer OTHER, SELFPAY | PROVIDERS: PCP Internal Medicine; Visit Provider Thoracic Surgery (Cardiothoracic Vascular Surgery) | DX: E11.52 Type 2 diabetes mellitus with diabetic peripheral angiopathy with gangrene (principal); E11.621 Type 2 diabetes mellitus with foot ulcer; L97.522 Non-pressure chronic ulcer of other part of left foot with fat layer exposed | CPT/HCPCS: 11042 ==

== ENCOUNTER → 2024-10-06 14:30 | Outpatient (BNVA) | payer OTHER, SELFPAY | PROVIDERS: PCP Internal Medicine; Visit Provider Thoracic Surgery (Cardiothoracic Vascular Surgery) | DX: E11.52 Type 2 diabetes mellitus with diabetic peripheral angiopathy with gangrene (principal); E11.621 Type 2 diabetes mellitus with foot ulcer; L97.522 Non-pressure chronic ulcer of other part of left foot with fat layer exposed | CPT/HCPCS: 15275 ==

== ENCOUNTER → 2024-10-13 14:47 | Outpatient (BNVA) | payer OTHER, SELFPAY | PROVIDERS: PCP Internal Medicine; Visit Provider Thoracic Surgery (Cardiothoracic Vascular Surgery) | DX: E11.52 Type 2 diabetes mellitus with diabetic peripheral angiopathy with gangrene (principal); E11.621 Type 2 diabetes mellitus with foot ulcer; L97.421 Non-pressure chronic ulcer of left heel and midfoot limited to breakdown of skin | CPT/HCPCS: A6021; A6206; A6250 ==

== ENCOUNTER → 2024-10-22 15:38 | Outpatient (BNVA) | payer OTHER, SELFPAY | PROVIDERS: PCP Internal Medicine; Visit Provider Thoracic Surgery (Cardiothoracic Vascular Surgery) | DX: E11.52 Type 2 diabetes mellitus with diabetic peripheral angiopathy with gangrene (principal); E11.621 Type 2 diabetes mellitus with foot ulcer; L97.521 Non-pressure chronic ulcer of other part of left foot limited to breakdown of skin | CPT/HCPCS: 15275; A6206; A6250 ==

== ENCOUNTER → 2024-10-29 15:22 | Outpatient (BNVA) | payer OTHER, SELFPAY | PROVIDERS: PCP Internal Medicine; Visit Provider Thoracic Surgery (Cardiothoracic Vascular Surgery) | DX: E11.52 Type 2 diabetes mellitus with diabetic peripheral angiopathy with gangrene (principal); E11.621 Type 2 diabetes mellitus with foot ulcer; L97.522 Non-pressure chronic ulcer of other part of left foot with fat layer exposed | CPT/HCPCS: 15275; A6206; A6250 ==

== ENCOUNTER → 2024-11-05 15:11 | Outpatient (BNVA) | payer OTHER, SELFPAY | PROVIDERS: PCP Internal Medicine; Visit Provider Thoracic Surgery (Cardiothoracic Vascular Surgery) | DX: E11.52 Type 2 diabetes mellitus with diabetic peripheral angiopathy with gangrene (principal); E11.621 Type 2 diabetes mellitus with foot ulcer; L97.522 Non-pressure chronic ulcer of other part of left foot with fat layer exposed | CPT/HCPCS: 15275; A6206; A6250; Q4186 ==

== ENCOUNTER → 2024-11-12 13:57 | Outpatient (BNVA) | payer OTHER, SELFPAY | PROVIDERS: PCP Internal Medicine; Visit Provider Thoracic Surgery (Cardiothoracic Vascular Surgery) | DX: E11.52 Type 2 diabetes mellitus with diabetic peripheral angiopathy with gangrene (principal); E11.621 Type 2 diabetes mellitus with foot ulcer; L97.522 Non-pressure chronic ulcer of other part of left foot with fat layer exposed | CPT/HCPCS: 15275; A6197; Q4186 ==

== ENCOUNTER → 2024-11-26 14:55 | Outpatient (BNVA) | payer OTHER, SELFPAY | PROVIDERS: PCP Internal Medicine; Visit Provider Thoracic Surgery (Cardiothoracic Vascular Surgery) | DX: E11.52 Type 2 diabetes mellitus with diabetic peripheral angiopathy with gangrene (principal); E11.621 Type 2 diabetes mellitus with foot ulcer; L97.521 Non-pressure chronic ulcer of other part of left foot limited to breakdown of skin | CPT/HCPCS: 97597 ==

== ENCOUNTER → 2024-12-10 14:47 | Outpatient (BNVA) | payer OTHER, SELFPAY | PROVIDERS: PCP Internal Medicine; Visit Provider Thoracic Surgery (Cardiothoracic Vascular Surgery) | DX: E11.52 Type 2 diabetes mellitus with diabetic peripheral angiopathy with gangrene (principal); E11.621 Type 2 diabetes mellitus with foot ulcer; L97.521 Non-pressure chronic ulcer of other part of left foot limited to breakdown of skin | CPT/HCPCS: 97597 ==

== ENCOUNTER → 2024-12-31 14:57 | Outpatient (BNVA) | payer OTHER, SELFPAY | PROVIDERS: PCP Internal Medicine; Visit Provider Thoracic Surgery (Cardiothoracic Vascular Surgery) | DX: E11.52 Type 2 diabetes mellitus with diabetic peripheral angiopathy with gangrene (principal); E11.621 Type 2 diabetes mellitus with foot ulcer; L97.521 Non-pressure chronic ulcer of other part of left foot limited to breakdown of skin | CPT/HCPCS: 97597 ==

== ENCOUNTER → 2025-01-21 14:44 | Outpatient (BNVA) | payer OTHER, SELFPAY | PROVIDERS: PCP Internal Medicine; Visit Provider Thoracic Surgery (Cardiothoracic Vascular Surgery) | DX: E11.52 Type 2 diabetes mellitus with diabetic peripheral angiopathy with gangrene (principal); E11.621 Type 2 diabetes mellitus with foot ulcer; L97.521 Non-pressure chronic ulcer of other part of left foot limited to breakdown of skin | CPT/HCPCS: 97597 ==

== ENCOUNTER → 2025-02-11 14:45 | Outpatient (BNVA) | payer OTHER, SELFPAY | PROVIDERS: PCP Internal Medicine; Visit Provider Thoracic Surgery (Cardiothoracic Vascular Surgery) | DX: E11.621 Type 2 diabetes mellitus with foot ulcer (principal); L97.522 Non-pressure chronic ulcer of other part of left foot with fat layer exposed | CPT/HCPCS: 97597 ==

== ENCOUNTER → 2025-02-18 15:03 | Outpatient (BNVA) | payer OTHER, SELFPAY | PROVIDERS: PCP Internal Medicine; Visit Provider Podiatrist Foot & Ankle Surgery | DX: E11.29 Type 2 diabetes mellitus with other diabetic kidney complication (principal); B35.1 Tinea unguium; N18.9 Chronic kidney disease, unspecified; R60.0 Localized edema; I73.9 Peripheral vascular disease, unspecified; L84 Corns and callosities; Z79.84 Long term (current) use of oral hypoglycemic drugs | CPT/HCPCS: 11721; 99213 ==

== ENCOUNTER 2025-03-04 14:55 | Outpatient (CLI) | payer OTHER, SELFPAY ==
--- NOTE | 2025-03-04 15:48 | XR_ITS ---
WS: [id number] XR foot LT min 3V* [id number] REASON FOR EXAM: R/O osteo FINDINGS: No fracture or focal bone lesion. No bone erosion or periosteal reaction. The joint spaces of the forefoot, midfoot, and hindfoot are intact and relatively well preserved for age. XR/XR foot LT min 3V* [id number] IMPRESSION: No acute bone or joint abnormality.
== END 2025-03-04 14:56 | disposition home or self-care (01) ==
LOC: RAD 14:57
PROVIDERS: PCP Internal Medicine; Visit Provider Thoracic Surgery (Cardiothoracic Vascular Surgery)
DX: E11.621 Type 2 diabetes mellitus with foot ulcer (principal); L97.529 Non-pressure chronic ulcer of other part of left foot with unspecified severity
CPT/HCPCS: 73630; 97597

== ENCOUNTER → 2025-08-20 09:48 | Outpatient (BNVA) | payer OTHER, SELFPAY | PROVIDERS: PCP Internal Medicine; Visit Provider Thoracic Surgery (Cardiothoracic Vascular Surgery) | DX: E11.621 Type 2 diabetes mellitus with foot ulcer (principal); L97.509 Non-pressure chronic ulcer of other part of unspecified foot with unspecified severity | CPT/HCPCS: 11042; 36415; 73630; 80048; 83036; 85025; 85651; 86140; 99213 ==

== ENCOUNTER → 2025-08-23 08:01 | Outpatient (BNVA) | payer OTHER, SELFPAY | PROVIDERS: PCP Internal Medicine; Visit Provider Thoracic Surgery (Cardiothoracic Vascular Surgery) | DX: E11.621 Type 2 diabetes mellitus with foot ulcer (principal); L97.521 Non-pressure chronic ulcer of other part of left foot limited to breakdown of skin | CPT/HCPCS: 97597; A6212 ==

== ENCOUNTER → 2025-08-30 08:11 | Outpatient (BNVA) | payer OTHER, SELFPAY | PROVIDERS: PCP Internal Medicine; Visit Provider Thoracic Surgery (Cardiothoracic Vascular Surgery) | DX: E11.52 Type 2 diabetes mellitus with diabetic peripheral angiopathy with gangrene (principal); E11.621 Type 2 diabetes mellitus with foot ulcer; L97.521 Non-pressure chronic ulcer of other part of left foot limited to breakdown of skin | CPT/HCPCS: 97597; A6212 ==

== ENCOUNTER → 2025-08-31 09:17 | Outpatient (BNVA) | payer OTHER, SELFPAY | PROVIDERS: PCP Internal Medicine; Visit Provider Podiatrist Foot & Ankle Surgery | DX: E11.42 Type 2 diabetes mellitus with diabetic polyneuropathy (principal); B35.1 Tinea unguium; L84 Corns and callosities; N18.9 Chronic kidney disease, unspecified; R60.0 Localized edema; I73.9 Peripheral vascular disease, unspecified; G62.9 Polyneuropathy, unspecified; Z79.84 Long term (current) use of oral hypoglycemic drugs | CPT/HCPCS: 11056; 11721; 99214 ==